=== PATIENT | female | born 1980 | race Caucasian/White ===

== ENCOUNTER 2019-06-26 10:47 | Emergency (ER) | payer OTHER ==
[2019-06-26 10:53] VITALS: BP 126/81
[2019-06-26] MEDS ORDERED: ONDANSETRON 4 MG TAB.RAPDIS PO ONE (11:12)
--- NOTE | 2019-06-26 11:13 | ER Document Report ---
ED Medical Screen (RME) - General Chief Complaint: Nausea/Vomiting Stated Complaint: VOMITING Time Seen by Provider: 06/26/19 11:10 Mode of Arrival: Ambulatory Information source: Patient Notes: 39-year-old female presents to ED for abdominal pain nausea and vomiting. She states she drank a whole bottle of wine last night and cannot keep anything including water on her stomach at this time. She has an IUD. Last menstrual cycle 2 weeks ago she has had 3 emesis today and is alert oriented respirations regular nonlabored speaking in full sentences I have greeted and performed a rapid initial assessment of this patient. A comprehensive ED assessment and evaluation of the patient, analysis of test results and completion of medical decision making process will be conducted by an additional ED providers. Past Medical History - Social History Chew tobacco use (# tins/day): No Frequency of alcohol use: Social Drug Abuse: None Physical Exam - Vital signs Vitals: Temp Pulse Resp BP Pulse Ox 98.8 F 101 H 20 126/81 H 97 06/26/19 10:51 06/26/19 10:51 06/26/19 10:51 06/26/19 10:51 06/26/19 10:51 Course - Vital Signs Vital signs: Temp Pulse Resp BP Pulse Ox 98.8 F 101 H 20 126/81 H 97 06/26/19 10:51 06/26/19 10:51 06/26/19 10:51 06/26/19 10:51 06/26/19 10:51
[2019-06-26 11:49] LABS: ABSOLUTE EOSINOPHILS # (AUTO) 0.1 10^3/uL (0.0-0.6); ABSOLUTE LYMPHOCYTES (AUTO) 1.2 10^3/uL (0.5-4.7); ABSOLUTE MONOCYTES (AUTO) 0.6 10^3/uL (0.1-1.4); ABSOLUTE NEUT (AUTO) 9.1 10^3/uL (1.7-8.2); BASOPHILS % (AUTO) 0.3 % (0-2); EOSINOPHILS % (AUTO) 1.3 % (0-6); HEMATOCRIT 41.4 % (36.0-47.0); HEMOGLOBIN 14.1 g/dL (12.0-15.5); LYMPHOCYTES % (AUTO) 10.5 % (13-45); MEAN CORPUSCULAR HEMOGLOBIN 32.9 pg (27.0-33.4); MEAN CORPUSCULAR HGB CONC 34.2 g/dL (32.0-36.0); MEAN CORPUSCULAR VOLUME 96 fl (80-97); MONOCYTES % (AUTO) 5.6 % (3-13); PLATELET COUNT 300 10^3/uL (150-450); RED CELL DISTRIBUTION WIDTH 12.7 % (11.5-14.0); SEGMENTED NEUTROPHILS % (AUTO) 82.3 % (42-78); TOTAL CELLS COUNTED % (AUTO) 100 %; WHITE BLOOD COUNT 11.1 10^3/uL (4.0-10.5)
[2019-06-26 12:10] LABS: ALBUMIN 4.2 g/dL (3.5-5.0); ALKALINE PHOSPHATASE 107 U/L (38-126); ANION GAP 10 (5-19); ASPARTATE AMINO TRANSFERASE 18 U/L (14-36); BILIRUBIN,TOTAL 0.5 mg/dL (0.2-1.3); BLOOD UREA NITROGEN 9 mg/dL (7-20); CALCIUM 8.8 mg/dL (8.4-10.2); CARBON DIOXIDE 24 mmol/L (22-30); CHLORIDE 107 mmol/L (98-107); GLUCOSE 102 mg/dL (75-110); POTASSIUM 4.1 mmol/L (3.6-5.0); TOTAL PROTEIN 7.4 g/dL (6.3-8.2)
[2019-06-26] MEDS: NORMAL SALINE 1000 ML 1,000 ML IV PRN ×2 (12:33→13:15)
[2019-06-26 12:36] LABS: APPEARANCE,URINE SLIGHTLY-CLOUDY; BILIRUBIN,URINE NEGATIVE (NEGATIVE); COLOR,URINE YELLOW; GLUCOSE, URINE NEGATIVE (NEGATIVE); KETONES,URINE NEGATIVE (NEGATIVE); PROTEIN,URINE 30 mg/dL (NEGATIVE); URINE SPECIFIC GRAVITY 1.018; UROBILINOGEN,URINE NEGATIVE mg/dL (<2.0)
[2019-06-26] MEDS ORDERED: FAMOTIDINE INJ/PF 20 MG/2 ML SDV IV ONE (13:13)
[2019-06-26] MEDS ORDERED: NORMAL SALINE 1000 ML 1,000 ML IV ONE (13:29)
[2019-06-26] MEDS ORDERED: KETOROLAC TROMETHAMINE INJ/PF 30 MG/1 ML SDV IV ONE (13:29)
[2019-06-26] MEDS ORDERED: PROMETHAZINE HCL INJ 50 MG/1 ML VIAL IM ONE (13:30)
--- NOTE | 2019-06-26 14:06 | ER Document Report ---
ED GI/ - General Chief Complaint: Nausea/Vomiting Stated Complaint: VOMITING Time Seen by Provider: 06/26/19 11:10 Primary Care Provider: MELL HERNANDEZ MD [Primary Care Provider] - Follow up in 1 week Mode of Arrival: Ambulatory - [facility] Notes: 06/26/19 14:01 39-year-old female to the emergency department with complaints of upper abdominal pain with associated nausea and vomiting that started at 830 this morning. She states that she drinks about a bottle of wine last night. She states this morning she normally drinks. She states she drank a bottle of wine but she did put her dog down. She denies any fevers. She endorses chills. She denies any recent travel or recent antibiotic use. She denies any blood in her vomit. She denies any diarrhea or change in bowel habits. - Related Data Allergies/Adverse Reactions: No Known Allergies Allergy (Unverified 06/26/19 11:12) Past Medical History - General Information source: Patient - Social History Smoking Status: Current Every Day Smoker Chew tobacco use (# tins/day): No Frequency of alcohol use: Social Drug Abuse: None Family History: Reviewed & Not Pertinent Patient has suicidal ideation: No Patient has homicidal ideation: No Review of Systems - Review of Systems Constitutional: Chills. denies: Fever EENT: No symptoms reported Cardiovascular: denies: Chest pain, Palpitations, Dyspnea, Syncope Respiratory: denies: Cough, Short of breath Gastrointestinal: Abdominal pain, Nausea, Vomiting. denies: Diarrhea, Constipation, Blood streaked bowels, Rectal bleeding Genitourinary: No symptoms reported Female Genitourinary: No symptoms reported Musculoskeletal: No symptoms reported Skin: No symptoms reported Hematologic/Lymphatic: No symptoms reported Neurological/Psychological: No symptoms reported -: Yes All other systems reviewed and negative Physical Exam - Vital signs Vitals: Temp Pulse Resp BP Pulse Ox 98.8 F 101 H 20 126/81 H 97 06/26/19 10:51 06/26/19 10:51 06/26/19 10:51 06/26/19 10:51 06/26/19 10:51 Interpretation: Tachycardic - General General appearance: Appears well, Alert In distress: Mild Notes: mild distress -- patient looks like she feels unwell. non toxic in appearance. - HEENT Head: Normocephalic, Atraumatic Eyes: Normal Pupils: PERRL Ears: Normal External canal: Normal Tympanic membrane: Normal Sinus: Normal Nasal: Normal Mouth/Lips: Normal Pharynx: Normal Neck: Normal, Supple. No: Lymphadenopathy, Meningismus - Respiratory Respiratory status: No respiratory distress Chest status: Nontender Breath sounds: Normal. No: Rales, Rhonchi, Stridor, Wheezing Chest palpation: Normal - Cardiovascular Rhythm: Regular Heart sounds: Normal auscultation Murmur: No - Abdominal Inspection: Normal Distension: No distension Bowel sounds: Normal Tenderness: Tender - + TTP over the epigastrium. there is no TTP over the RUQ, LUQ, LLQ, RLQ.. No: McBurney's point, Pat's sign, Guarding, Rebound - Back Back: Normal, Nontender. No: CVA tenderness - Neurological Neuro grossly intact: Yes Cognition: Normal Orientation: AAOx4 [place] Coma Scale Eye Opening: Spontaneous [place] Coma Scale Verbal: Oriented [place] Coma Scale Motor: Obeys Commands [place] Coma Scale Total: 15 Speech: Normal Cranial nerves: Normal Cerebellar coordination: Normal Motor strength normal: LUE, RUE, LLE, RLE Sensory: Normal - Psychological Associated symptoms: Normal affect, Normal mood - Skin Skin Temperature: Warm Skin Moisture: Dry Skin Color: Normal Course - Re-evaluation Re-evalutation: 06/26/19 Patient has improved since Pepcid and Toradol. She states that her nausea is much improved as well as her abdominal pain. We have p.o. challenged her with water and she is held that down well. Will discharge home. Suspected alcoholic gastritis without bleeding. Would likely dehydration and hangover symptoms. Encourage patient to avoid alcohol and to push fluids. Encouraged her to return in the next 24 hours if she has worsening symptoms such as intractable pain, intractable vomiting, vomiting blood, fevers, chest pain or any other concerning symptoms. Patient agrees with the plan - Vital Signs Vital signs: Temp Pulse Resp BP Pulse Ox 98.8 F 101 H 20 126/81 H 97 06/26/19 10:51 06/26/19 10:51 06/26/19 10:51 06/26/19 10:51 06/26/19 10:51 - Laboratory Result Diagrams: 06/26/19 11:25 06/26/19 11:25 Laboratory results interpreted by me: 06/26/19 06/26/19 11:25 11:25 WBC 11.1 H Lymph % (Auto) 10.5 L Absolute Neuts (auto) 9.1 H Seg Neutrophils % 82.3 H Urine Protein 30 H Discharge - Discharge Clinical Impression: Headache, Dehydration Alcoholic gastritis Qualifiers: Chronicity: acute Gastritis bleeding: without bleeding Qualified Code(s): K29.20 - Alcoholic gastritis without bleeding Nausea and vomiting Qualifiers: Vomiting type: unspecified Vomiting Intractability: non-intractable Qualified Code(s): R11.2 - Nausea with vomiting, unspecified Condition: Stable Disposition: HOME, SELF-CARE Instructions: Dehydration ([facility]), Nausea or Vomiting, Nonspecific ([facility]) Additional Instructions: PUSH FLUIDS. AVOID ALCOHOL. RETURN IN THE NEXT 24 HOURS IF INTRACTABLE VOMITING, INTRACTABLE PAIN, OR ANY OTHER CONCERNS. FOLLOW UP WITH PRIMARY CARE. Prescriptions: Sucralfate [Carafate] 1 gm PO QID #420 oral.susp Ondansetron [Zofran Odt 4 mg Tablet] 1 - 2 tab PO Q4H PRN #15 tab.rapdis PRN Reason: For Nausea/Vomiting Referrals: MELL HERNANDEZ MD [Primary Care Provider] - Follow up in 1 week
== END 2019-06-26 15:41 | disposition home or self-care (01) ==
LOC: ER 10:47
DX: K29.20 Alcoholic gastritis without bleeding (principal); E86.0 Dehydration; R11.2 Nausea with vomiting, unspecified; R51 Headache; R10.10 Upper abdominal pain, unspecified; F17.200 Nicotine dependence, unspecified, uncomplicated
CPT/HCPCS: 99284; 96361; 96374; 96375; 36415; 83690; 85025; 81025; 80053; 81001; S0119; J1885; J2550; J7030; S0028